=== PATIENT | male | born 1940 | race African-American/Black ===

== ENCOUNTER 2018-02-04 04:21 | Inpatient (IN) | payer OTHER ==
[~2018-02-04] VITALS: Ht 182.9 cm; Wt 81.6 kg
[2018-02-04] MEDS ORDERED: DEXTROSE 50% WATER 50ML SYRINGE IV ONE (05:00)
[2018-02-04 05:29] LABS: BASOPHILS % 0.8 % (0.0-2.0); EOSINOPHILS % 1.2 % (0.0-5.0); HEMATOCRIT. 36.8 % (42.0-52.0); HEMOGLOBIN. 11.8 g/dL (14.0-18.0); LYMPHOCYTES % 17.2 % (20.0-50.0); MEAN CORPUSCULAR HEMOGLOBIN 29.6 pg (28.0-32.0); MEAN CORPUSCULAR VOLUME 92.1 fL (80.0-94.0); MEAN PLATELET VOLUME 9.2 fl (7.4-10.4); MONOCYTES % 13.1 % (2.0-8.0); NEUTROPHILS % 67.7 % (40.0-76.0); PLATELET 145 x1000/uL (130-400); RED CELL DISTRIBUTION WIDTH 15.9 % (11.6-14.6)
[2018-02-04 05:31] LABS: CHLORIDE 111 mEq/L (98-107)
[2018-02-04 05:35] LABS: AMYLASE 79 IU/L (25-115)
[2018-02-04 05:40] LABS: CREATINE KINASE 129 IU/L (39-308)
[2018-02-04 05:43] LABS: CREATINE KINASE MB FRACTION 2.4 ng/mL (0.5-3.6)
[2018-02-04] MEDS ORDERED: SODIUM CHLORIDE 0.9% 1,000 ML IV SCH (08:05)
[2018-02-04] MEDS ORDERED: TRAMADOL 50MG TABLET PO PRN (08:15)
[2018-02-04] MEDS ORDERED: MAGNESIUM/ALUMINUM HYDROXIDE/SIMETHICONE 30ML UDC PO PRN (08:15)
[2018-02-04] MEDS ORDERED: ZOLPIDEM TARTRATE 5MG TABLET PO PRN (08:15)
[2018-02-04] MEDS ORDERED: ACETAMINOPHEN 325MG TABLET PO PRN (08:15)
[2018-02-04] MEDS ORDERED: DOCUSATE SODIUM 100MG CAPSULE PO PRN (08:15)
[2018-02-04] MEDS ORDERED: NA PHOS,M-B/NA PHOS,DI-BA ENEMA 118ML PR PRN (08:15)
[2018-02-04] MEDS ORDERED: DIPHENHYDRAMINE 50MG/ML VIAL IV PRN (08:15)
[2018-02-04] MEDS ORDERED: GUAIFENESIN 200MG/10ML SUGAR FREE UDC PO PRN (08:15)
[2018-02-04] MEDS ORDERED: ONDANSETRON HCL 4MG/2ML INJ IV PRN (08:15)
[2018-02-04] MEDS ORDERED: CLONIDINE 0.1MG TABLET PO PRN (08:15)
[2018-02-04] MEDS ORDERED: IPRATROPIUM/ALBUTEROL 0.5-3(2.5)MG/3ML NEB INH PRN (08:15)
[2018-02-04 08:20] LABS: CLARITY URINE CLEAR (CLEAR); COLOR URINE YELLOW (YELLOW); KETONES URINE NEGATIVE (NEGATIVE); LEUKOCYTE ESTERASE URINE NEGATIVE (NEGATIVE); NITRITE URINE NEGATIVE (NEGATIVE); OCCULT BLOOD URINE NEGATIVE (NEGATIVE); PROTEIN URINE 1+ (NEGATIVE); SPECIFIC GRAVITY URINE 1.015 (1.005-1.030); UROBILINOGEN URINE 0.2 E.U./dL (0.2-1.0)
[2018-02-04 08:34] LABS: *AMPHETAMINES SCREEN URINE NEGATIVE (NEGATIVE); *BARBITURATES SCREEN URINE NEGATIVE (NEGATIVE); *BENZODIAZEPINES SCREEN URINE NEGATIVE (NEGATIVE); *COCAINE SCREEN URINE NEGATIVE (NEGATIVE); METHADONE URINE SCREEN NEGATIVE (NEGATIVE); OPIATES URINE SCREEN NEGATIVE (NEGATIVE)
[2018-02-04 08:35] LABS: CANNABINOID URINE SCREEN NEGATIVE (NEGATIVE); PHENCYCLIDINE URINE SCREEN NEGATIVE (NEGATIVE)
[2018-02-04] MEDS ORDERED: NITROGLYCERIN 0.4MG TABLET SL SL PRN (09:15)
[2018-02-04] MEDS ORDERED: METOPROLOL TARTRATE 25MG TABLET PO NR (11:00)
[2018-02-04] MEDS ORDERED: ASPIRIN 325MG EC TABLET PO NR (11:00)
[2018-02-04] MEDS ORDERED: FAMOTIDINE 20MG TABLET PO NR (11:00)
[2018-02-04] MEDS ORDERED: ENOXAPARIN 40MG/0.4ML SYR SUBCUT NR (11:00)
[2018-02-04 12:00] VITALS: BP 133/82
[2018-02-04] MEDS ORDERED: GLIP10TA10 MT (12:33)
[2018-02-04] MEDS ORDERED: CARV25TA47 MT (12:36)
[2018-02-04] MEDS ORDERED: ASPIRIN 325MG EC TABLET PO SCH (13:00)
[2018-02-04] MEDS ORDERED: DEXTROSE 50% WATER 50ML SYRINGE IV PRN (13:00)
[2018-02-04] MEDS ORDERED: METOPROLOL TARTRATE 25MG TABLET PO SCH (13:30)
[2018-02-04] MEDS: BLOOD SUGAR DIAGNOSTIC STRIP TEST SCH ×2 (13:46→16:31)
[2018-02-04] MEDS: INSULIN LISPRO 100 UNITS/ML SUBCUT SCH ×2 (13:52→17:07)
[2018-02-04] MEDS ORDERED: ENOXAPARIN 40MG/0.4ML SYR SUBCUT SCH (14:00)
[2018-02-04] MEDS ORDERED: FAMOTIDINE 20MG TABLET PO SCH (14:00)
[2018-02-04 16:00] VITALS: BP 112/72
[2018-02-04 16:34] LABS: CREATINE KINASE MB FRACTION 2.9 ng/mL (0.5-3.6)
[2018-02-04 18:58] LABS: TOTAL IRON BINDING CAPACITY 296 ug/dL (250-450)
[2018-02-04 19:35] LABS: FOLIC ACID (FOLATE) SERUM 15.3 ng/mL (>5.38)
== END 2018-02-04 20:50 | disposition left against medical advice (07) | DRG 280 ==
LOC: ER 04:21 → 7WST 06:06 → ENRESERV 10:52
PROVIDERS: ADMIT Internal Medicine; ATTEND Internal Medicine
DX: I21.4 Non-ST elevation (NSTEMI) myocardial infarction (principal); N17.0 Acute kidney failure with tubular necrosis; E44.0 Moderate protein-calorie malnutrition; E87.0 Hyperosmolality and hypernatremia; G93.40 Encephalopathy, unspecified; E11.649 Type 2 diabetes mellitus with hypoglycemia without coma; D63.8 Anemia in other chronic diseases classified elsewhere; I50.9 Heart failure, unspecified; I11.0 Hypertensive heart disease with heart failure; Z68.24 Body mass index [BMI] 24.0-24.9, adult; Z79.899 Other long term (current) drug therapy; Z88.0 Allergy status to penicillin
CPT/HCPCS: 36415; 71045; 80053; 80061; 80305; 81003; 82150; 82550; 82553; 82607; 82746; 82962; 83036; 83540; 83550; 83605; 83690; 84484; 85025; 87040; 87086; 93005; 93306; 96374; 99285; J1650; J1815; J7030

== ENCOUNTER 2019-09-16 09:32 | Emergency (ER) | payer OTHER ==
[~2019-09-16] VITALS: Ht 182.9 cm; Wt 68.0 kg
[~2019-09-16 09:32] MED LIST: CARV25TA47 MT; GLIP10TA10 MT
[2019-09-16] MEDS ORDERED: VANCOMYCIN 1 G PREMIX 200 ML IV ONE (09:45)
[2019-09-16] MEDS ORDERED: MEROPENEM 1,000 MG in SODIUM CHLORIDE 0.9% 100 ML IV ONE (09:45)
[2019-09-16 11:00] LABS: BG BASE EXCESS -12.3 mmol/L (-2.0-2.0); BG CARBOXYHEMOGLOBIN 0.3 % (0.5-1.5); BG DEOXYHEMOGLOBIN 2.1 % (0.0-5.0); BG FRACTION INSPIRED OXYGEN 99.8; BG HCO3 ACT 12.4 mmol/L (22.0-26.0); BG METHEMOGLOBIN 0.2 % (0.0-1.5); BG OXYGEN SATURATION 97.9 % (92.0-98.5); BG OXYHEMOGLOBIN 97.4 % (94.0-97.0); BG PCO2 25.8 mmHg (35.0-45.0); BG PH 7.298 (7.350-7.450); BG PO2 120.6 mmHg (75.0-100.0); BG SAMPLE SITE RIGHT RADIAL; BG TOTAL HEMOGLOBIN 14.1 g/dL (12.0-18.0); BG VENT MODE MASK - NRB
[2019-09-16] MEDS ORDERED: AMIODARONE HCL 150 MG in DEXT 5% WATER 100 ML IV ONE (11:00)
[2019-09-16 11:05] LABS: HEMATOCRIT. 44.2 % (42.0-52.0); HEMOGLOBIN. 14.3 g/dL (14.0-18.0); MEAN CORPUSCULAR HEMOGLOBIN 31.6 pg (28.0-32.0); MEAN CORPUSCULAR VOLUME 97.4 fL (80.0-94.0); MEAN PLATELET VOLUME 8.4 fl (7.4-10.4); PLATELET 254 x1000/uL (130-400); RED BLOOD CELL COUNT 4.53 mill/uL (4.7-6.1); RED CELL DISTRIBUTION WIDTH 15.1 % (11.6-14.6)
[2019-09-16 11:12] LABS: CHLORIDE 112 mEq/L (98-107)
[2019-09-16 11:14] LABS: CLARITY URINE TURBID (CLEAR); COLOR URINE DARK YELLOW (YELLOW); KETONES URINE TRACE (NEGATIVE); LEUKOCYTE ESTERASE URINE 3+ (NEGATIVE); NITRITE URINE NEGATIVE (NEGATIVE); OCCULT BLOOD URINE 3+ (NEGATIVE); PROTEIN URINE 1+ (NEGATIVE); SPECIFIC GRAVITY URINE 1.024 (1.005-1.030)
[2019-09-16 11:21] LABS: CREATINE KINASE 174 IU/L (39-308)
[2019-09-16 11:30] LABS: D-DIMER 20.51 mg/L FEU (<0.50); INR 1.4
[2019-09-16 11:34] VITALS: BP 98/51
[2019-09-16] MEDS ORDERED: FUROSEMIDE 100MG/10ML VIAL IV STA (11:35)
[2019-09-16] MEDS ORDERED: INSULIN REGULAR (HUMULIN R) 300UNITS/3ML IV ONE (11:45)
[2019-09-16] MEDS ORDERED: CALCIUM CHLORIDE 1GM/10ML SYR IV ONE (11:45)
[2019-09-16] MEDS ORDERED: DEXTROSE 50% WATER 50ML SYRINGE IV ONE (11:45)
[2019-09-16] MEDS ORDERED: SODIUM BICARBONATE 8.4% 1 MEQ/ML 50ML SYR IV ONE (11:45)
[2019-09-16] MEDS ORDERED: ALBUTEROL (0.083%) 2.5MG/3ML NEB HHN ONE (11:45)
[2019-09-16] MEDS ORDERED: LACTULOSE 20G/30ML UDC PO ONE (11:45)
[2019-09-16] MEDS ORDERED: AMIODARONE HCL 900 MG in DEXT 5% WATER 500 ML IV ONE (12:00)
[2019-09-16] MEDS ORDERED: SODIUM BICARBONATE 100 MEQ in SODIUM CHLORIDE 0.45% 1,000 ML IV SCH (12:00)
[2019-09-16] MEDS ORDERED: ONDANSETRON HCL 4MG/2ML INJ IV PRN (12:45)
[2019-09-16] MEDS ORDERED: DEXTROSE 50% WATER 50ML SYRINGE IV PRN (12:45)
[2019-09-16] MEDS ORDERED: AZITHROMYCIN 500 MG in DEXT 5% WATER 250 ML IV SCH (12:45)
[2019-09-16] MEDS ORDERED: CEFTRIAXONE 1 G PREMIX 50 ML IV SCH (12:45)
[2019-09-16] MEDS ORDERED: ACETAMINOPHEN 325MG TABLET PO PRN (12:45)
[2019-09-16 12:53] LABS: PLATELET ESTIMATE NORMAL
[2019-09-16] MEDS ORDERED: BLOOD SUGAR DIAGNOSTIC STRIP TEST SCH (13:00)
[2019-09-16] MEDS ORDERED: INSULIN LISPRO 100 UNITS/ML SUBCUT SCH (13:20)
[2019-09-16] MEDS ORDERED: LACTULOSE 20G/30ML UDC PO SCH (14:00)
[2019-09-16] MEDS ORDERED: HEPARIN 5000 UNITS/ML VIAL SUBCUT SCH (21:00)
== END 2019-09-16 14:13 | disposition expired ==
LOC: ER 09:40 → CANBEDREQ 17:28
DX: A41.89 Other specified sepsis (principal); J96.01 Acute respiratory failure with hypoxia; N17.9 Acute kidney failure, unspecified; I48.91 Unspecified atrial fibrillation; D68.9 Coagulation defect, unspecified; K76.9 Liver disease, unspecified; I48.0 Paroxysmal atrial fibrillation; E87.2 Acidosis; E72.20 Disorder of urea cycle metabolism, unspecified; E11.9 Type 2 diabetes mellitus without complications; I25.10 Atherosclerotic heart disease of native coronary artery without angina pectoris; R18.8 Other ascites; E11.22 Type 2 diabetes mellitus with diabetic chronic kidney disease; I13.0 Hypertensive heart and chronic kidney disease with heart failure and stage 1 through stage 4 chronic kidney disease, or unspecified chronic kidney disease; N18.9 Chronic kidney disease, unspecified; I50.9 Heart failure, unspecified; E85.4 Organ-limited amyloidosis; I43 Cardiomyopathy in diseases classified elsewhere; Z88.0 Allergy status to penicillin
CPT/HCPCS: 36415; 36600; 71045; 80053; 81003; 82140; 82375; 82550; 82805; 83036; 83605; 83615; 84145; 84484; 85025; 85379; 85384; 85610; 86140; 87040; 87070; 87075; 87077; 87086; 87186; 87205; 87804; 89050; 93005; 96365; 96366; 96368; 99291; J0282; J1940; J2185; J3370; J3490; J7050; J7060; J1815; U0003-CS